=== PATIENT | male | born 1985 | race Caucasian/White ===

== ENCOUNTER 2017-06-28 22:23 | Emergency (ER) | payer OTHER ==
[~2017-06-28] VITALS: Ht 170.2 cm; Wt 104.3 kg
[~2017-06-28 22:23] MED LIST: FLEXERIL PO; LORTAB 10-3251 EACH PO; NORCO 5-325 TA1 EACH PO; PEPCID; PEPCID20 MG PO; VENTOLIN HFA 1818 GM INH
[2017-06-28 22:30] VITALS: BP 154/73
[2017-06-28] MEDS ORDERED: NORCO 5-325 TA1 EACH PO (23:03)
[2017-06-28] MEDS ORDERED: PREDNISONE 20 M20 MG PO (23:03)
== END 2017-06-28 23:20 | disposition home or self-care (01) ==
LOC: ER 22:23
DX: M54.40 Lumbago with sciatica, unspecified side (principal); J45.909 Unspecified asthma, uncomplicated; Z88.5 Allergy status to narcotic agent; Z88.6 Allergy status to analgesic agent

== ENCOUNTER 2017-07-28 10:17 | Inpatient (IN) | payer OTHER ==
[~2017-07-28] VITALS: Ht 170.2 cm; Wt 104.3 kg
--- NOTE | ~2017-07-28 | S ---
[facility] [place] [address] SURGICAL PATH RPT PROCEDURE Name: MICHAEL RODRIGUEZ Room #: 424-P DIS IN M.R.#: [id number] Admission: 07/28/17 Date of : 89 Discharge: 07/30/17 Report #: [id number] Path Case #: [id number] PATHOLOGY REPORT COLLECTION DATE: 07/29/2017 RECEIVED DATE: 07/29/2017 SUBMITTING PHYS: Dr. Elias Handy, DO OTHER PHYS: SPECIMEN(S) RECEIVED: A.Gallbladder * * * * * * * * * * * * FINAL DIAGNOSIS: Gallbladder, cholecystectomy: - Mild chronic cholecystitis (IUV:pit; 07/30/2017) PATHOLOGIST: Lynnette Ayon M.D. REPORT ELECTRONICALLY SIGNED BY: Lynnette Ayon M.D. DATE/TIME: 07/30/2017 16:40 * * * * * * * * * * * * GROSS PATHOLOGY: Received in formalin labeled "Michael Rodriguez, gallbladder," is a 9.1 x 4.4 x 1.8 cm, previously opened gallbladder with greenbluish, slightly wrinkled, and slightly vascular serosal surfaces. Opening the gallbladder reveals light brown, velvety mucosa and an average wall thickness of 0.2 cm. Calculi are not present (after filtration of the specimen container and gallbladder contents) and no masses are noted grossly. [employer]got Bug[employer] sections from the body and fundus are submitted along with the proximal margin in cassette A1. (TSD; 07/29/2017) CLINICAL HISTORY: Acute cholecystitis INITIAL CPT CODE(S): A; 11390 Professional services performed by [facility] at [facility] [address], [place] [address] Technical services performed by [facility] at [address] [place] [id number]. [facility] [address] [place] [address] SURGICAL PATH RPT PROCEDURE Name: MICHAEL RODRIGUEZ Room #: 424-P DIS IN Neda.R.#: [id number] Admission: 07/28/17 Date of : 89 Discharge: 07/30/17 Report #: [id number] Path Case #: [id number] [facility] [address] [address] PHONE: [phone] DIRECTOR: Juan Pablo Mckeon M.D. * * * END OF REPORT * * *
[2017-07-28 10:17] VITALS: BP 145/107
[~2017-07-28 10:17] MED LIST changes: +PREDNISONE 20 M20 MG PO
[2017-07-28] MEDS ORDERED: PEPCID20 MG PO (10:19)
[2017-07-28 11:00] LABS: HEMATOCRIT 47.6 % (42.0-52.0); HEMOGLOBIN 16.7 gm/dL (14.0-18.0); MCHC 35.1 g/dL (28.0-37.0); MCV 91.2 fL (80.0-100.0); RBC 5.22 mil/uL (4.50-6.00); WBC 6.1 thou/uL (4.0-11.0)
[2017-07-28 11:04] LABS: CALCIUM 9.2 mg/dL (8.5-10.1); POTASSIUM 3.9 mmol/L (3.5-5.1)
[2017-07-28 11:09] LABS: ALBUMIN 3.7 g/dL (3.4-5.0); TOTAL PROTEIN 7.2 g/dL (6.4-8.2)
[2017-07-28 13:35] VITALS: BP 124/80
[2017-07-28 13:40] VITALS: BP 135/109
[2017-07-28 15:34] VITALS: BP 124/87
[2017-07-28 19:47] VITALS: BP 132/83; BP 139/100
[2017-07-29] VITALS (9 sets, daily range): BP systolic 114–140; BP diastolic 62–82
[2017-07-29] MEDS ORDERED: HYDROCODON-ACE1 EAC7 PO (13:34)
[2017-07-29] MEDS ORDERED: MIRALAX17 GM PO (13:34)
[2017-07-29] MEDS ORDERED: ZOFRAN ODT4 MG DISSOLVE (13:34)
[2017-07-30 04:00] VITALS: BP 139/83
[2017-07-30 08:15] VITALS: BP 129/85
[2017-07-30 09:43] VITALS: BP 129/85
[2017-07-30] MEDS ORDERED: PROMETHAZINE12.5 M1 PO (11:10)
== END 2017-07-30 11:02 | disposition home or self-care (01) | DRG 419 ==
LOC: ER 10:17 → EROBS 12:30 → 4E 13:42 → ENTRNSPT 07-30 10:49 → EDTRNSPTSTS 07-30 10:51 → 4E 07-30 11:02
PROVIDERS: Emergency Medicine
PROC: 0FT44ZZ Resection of Gallbladder, Percutaneous Endoscopic Approach (ICD-10-PCS; principal; 2017-07-29)
DX: K80.00 Calculus of gallbladder with acute cholecystitis without obstruction (principal); J45.909 Unspecified asthma, uncomplicated; K82.8 Other specified diseases of gallbladder; F17.210 Nicotine dependence, cigarettes, uncomplicated; K21.9 Gastro-esophageal reflux disease without esophagitis; Z88.5 Allergy status to narcotic agent; Z88.6 Allergy status to analgesic agent
CPT/HCPCS: 10783; 50010; 50101; 62110; 62900; 70005

== ENCOUNTER 2017-11-20 11:37 | Emergency (ER) | payer OTHER ==
[~2017-11-20] VITALS: Ht 170.2 cm; Wt 104.3 kg
[~2017-11-20 11:37] MED LIST changes: +HYDROCODON-ACE1 EAC7 PO; +LOPERAMIDE 2 MG2 M1 PO; +MIRALAX17 GM PO; +PROMETHAZINE12.5 M1 PO; +ZOFRAN ODT4 MG DISSOLVE; +ZOFRAN ODT4 MG PO
[2017-11-20 11:48] VITALS: BP 135/87
[2017-11-20] MEDS ORDERED: NAPROSYN500 MG PO (13:04)
== END 2017-11-20 13:35 | disposition home or self-care (01) ==
LOC: ER 11:37
DX: S56.911A Strain of unspecified muscles, fascia and tendons at forearm level, right arm, initial encounter (principal); J45.909 Unspecified asthma, uncomplicated; F17.210 Nicotine dependence, cigarettes, uncomplicated; K21.9 Gastro-esophageal reflux disease without esophagitis; Z98.890 Other specified postprocedural states; Z88.6 Allergy status to analgesic agent; X58.XXXA Exposure to other specified factors, initial encounter; Y93.89 Activity, other specified; Y92.89 Other specified places as the place of occurrence of the external cause; Y99.8 Other external cause status

== ENCOUNTER 2018-01-25 08:28 | Emergency (ER) | payer OTHER ==
[~2018-01-25] VITALS: Ht 170.2 cm; Wt 104.3 kg
[~2018-01-25 08:28] MED LIST changes: +NAPROSYN500 MG PO
[2018-01-25 08:32] VITALS: BP 146/95
[2018-01-25] MEDS ORDERED: HYDROCODONE-AP1 EAC6 PO (09:08)
[2018-01-25] MEDS ORDERED: VALIUM5 MG PO (09:08)
[2018-01-25] MEDS ORDERED: MOBIC15 MG PO (09:08)
== END 2018-01-25 09:24 | disposition home or self-care (01) ==
LOC: ER 08:28
DX: M46.1 Sacroiliitis, not elsewhere classified (principal); J45.909 Unspecified asthma, uncomplicated; K21.9 Gastro-esophageal reflux disease without esophagitis; F17.210 Nicotine dependence, cigarettes, uncomplicated; Z88.6 Allergy status to analgesic agent

== ENCOUNTER 2018-01-30 09:58 | Emergency (ER) | payer OTHER ==
[~2018-01-30] VITALS: Ht 170.2 cm; Wt 104.3 kg
[~2018-01-30 09:58] MED LIST changes: +HYDROCODONE-AP1 EAC6 PO; +MOBIC15 MG PO; +VALIUM5 MG PO
[2018-01-30] MEDS ORDERED: MEDROLDOSEPACK PO (11:36)
[2018-01-30] MEDS ORDERED: NORCO 5-325 TA1 EACH PO (11:38)
[2018-01-30 11:53] VITALS: BP 122/74
== END 2018-01-30 11:54 | disposition home or self-care (01) ==
LOC: ER 09:58
DX: M54.5 Low back pain (principal); R10.2 Pelvic and perineal pain; J45.909 Unspecified asthma, uncomplicated; K21.9 Gastro-esophageal reflux disease without esophagitis; F17.210 Nicotine dependence, cigarettes, uncomplicated; Z88.6 Allergy status to analgesic agent

== ENCOUNTER 2018-05-10 11:56 | Emergency (ER) | payer OTHER ==
[~2018-05-10] VITALS: Ht 170.2 cm; Wt 102.1 kg
[~2018-05-10 11:56] MED LIST changes: +MEDROLDOSEPACK PO
[2018-05-10] MEDS ORDERED: NORCO 5-325 TA1 EACH PO (12:07)
== END 2018-05-10 12:45 | disposition home or self-care (01) ==
LOC: ER 11:56
DX: M25.511 Pain in right shoulder (principal); G89.29 Other chronic pain; Z76.5 Malingerer [conscious simulation]; J45.909 Unspecified asthma, uncomplicated; K21.9 Gastro-esophageal reflux disease without esophagitis; F17.210 Nicotine dependence, cigarettes, uncomplicated; Z88.5 Allergy status to narcotic agent

== ENCOUNTER 2019-02-11 07:29 | Emergency (ER) | payer OTHER ==
[~2019-02-11] VITALS: Ht 172.7 cm; Wt 97.5 kg
[2019-02-11 08:38] VITALS: BP 119/85
== END 2019-02-11 08:51 | disposition home or self-care (01) ==
LOC: ER 07:29
DX: M54.41 Lumbago with sciatica, right side (principal); M54.42 Lumbago with sciatica, left side; J45.909 Unspecified asthma, uncomplicated; K21.9 Gastro-esophageal reflux disease without esophagitis; F17.210 Nicotine dependence, cigarettes, uncomplicated; Z88.5 Allergy status to narcotic agent

== ENCOUNTER 2019-07-13 06:38 | Emergency (ER) | payer OTHER ==
[~2019-07-13] VITALS: Ht 170.2 cm; Wt 95.3 kg
[2019-07-13] MEDS ORDERED: IBUPROFEN 200200 M1 PO (06:59)
[2019-07-13 07:17] LABS: ABSOLUTE NEUTROPHILS 4.3 thou/uL (1.4-8.2); EOSINOPHILS 5.4 % (0.0-3.0); HEMATOCRIT 46.1 % (42.0-52.0); HEMOGLOBIN 16.1 gm/dL (14.0-18.0); LYMPHOCYTES 25.6 % (24.0-44.0); MCH 32.4 pg (26.0-34.0); MCHC 34.8 g/dL (28.0-37.0); MCV 92.9 fL (80.0-100.0); MONOCYTES 7.1 % (1.0-8.0); PLATELET COUNT 179 thou/uL (150-400); POLYS 60.9 % (36.0-66.0); RBC 4.97 mil/uL (4.50-6.00)
[2019-07-13 07:28] LABS: CALCIUM 9.9 mg/dL (8.5-10.1); CREATININE 1.1 mg/dL (0.7-1.3); POTASSIUM 4.2 mmol/L (3.5-5.1)
[2019-07-13 07:29] LABS: PROTIME 10.3 Seconds (9.3-11.4)
[2019-07-13] MEDS ORDERED: NAPROSYN500 MG PO (07:31)
[2019-07-13] MEDS ORDERED: ROBAXIN 750 MG750 MG PO (07:31)
[2019-07-13] MEDS ORDERED: NORCO 5-325 TA1 EAC1 PO (07:31)
[2019-07-13 07:35] LABS: ALBUMIN 4.1 g/dL (3.4-5.0); TOTAL BILIRUBIN 1.2 mg/dL (<0.1-1.0)
[2019-07-13 07:40] VITALS: BP 153/88
== END 2019-07-13 07:40 | disposition home or self-care (01) ==
LOC: ER 06:38
PROVIDERS: Emergency Medicine
DX: S46.811A Strain of other muscles, fascia and tendons at shoulder and upper arm level, right arm, initial encounter (principal); S20.221A Contusion of right back wall of thorax, initial encounter; F17.210 Nicotine dependence, cigarettes, uncomplicated; Z88.5 Allergy status to narcotic agent; Z88.6 Allergy status to analgesic agent; J45.909 Unspecified asthma, uncomplicated; K21.9 Gastro-esophageal reflux disease without esophagitis; Z90.49 Acquired absence of other specified parts of digestive tract; V89.2XXA Person injured in unspecified motor-vehicle accident, traffic, initial encounter; Y92.410 Unspecified street and highway as the place of occurrence of the external cause; Y93.89 Activity, other specified; Y99.8 Other external cause status